=== PATIENT | male | born 1960 | race Caucasian/White ===

== ENCOUNTER 2019-12-04 10:12 | Emergency (ER) | payer OTHER ==
[~2019-12-04] VITALS: Ht 170.2 cm; Wt 89.8 kg
[~2019-12-04 10:12] MED LIST: A/B OTIC15 ML; ECO81 PO; GLYBURIDE5 MG PO; PRI20 PO; ZOC20 PO; [UNRECOGNIZED DRUG - OTHER] PO
[2019-12-04 10:21] VITALS: Ht 170.2 cm; Wt 89.8 kg
[2019-12-04 11:17] VITALS: BP 148/65
== END 2019-12-04 11:17 | disposition home or self-care (01) ==
LOC: ED 10:12
DX: T21.21XA Burn of second degree of chest wall, initial encounter (principal); T20.10XA Burn of first degree of head, face, and neck, unspecified site, initial encounter; T31.0 Burns involving less than 10% of body surface
CPT/HCPCS: 90715